=== PATIENT | female | born 1990 | race Caucasian/White ===

== ENCOUNTER → 2022-03-04 | Outpatient (CLI) | payer BC ==
[~2022-03-04] MED LIST: IBU800 M1 PO; PERCOCET 325 MG1 TA2 PO; PRENATAL MVI
== END ==
LOC: COL.RAD 10:42
DX: D17.9 Benign lipomatous neoplasm, unspecified (principal); R22.2 Localized swelling, mass and lump, trunk

== ENCOUNTER 2022-03-28 10:22 | Day surgery (SDC) | payer BC ==
[~2022-03-28] VITALS: Ht 188 cm; Wt 143.8 kg
[2022-03-28 11:11] VITALS: BP 152/96; PULSE 84; TEMP 98.3
[2022-03-28] MEDS ORDERED: LEXAPRO20 MG PO (11:23)
[2022-03-28] MEDS ORDERED: TUMS ULTRA ST1000 MG PO (12:52)
[2022-03-28] MEDS ORDERED: FLEXERIL 1010 MG/TAB PO (12:52)
--- NOTE | 2022-03-28 15:53 | NUR ---
Discharge instructions were reviewed with the patient and her by TORSTEN Simpson. They both verbalized understanding and questions were answered at this time. The patient's IV to her left hand was removed and a pressure dressing was applied to the site. The patient is going to get dressed so she can be escorted out.
[2022-03-28 17:15] VITALS: BP 148/91; PULSE 91; TEMP 97.1
--- NOTE | 2022-03-28 17:15 | NUR ---
The patient arrived back to [facility] from the recovery room at this time. The patient reports pain at a "3" mostly located in her left rib area. The patient agrees to try some apple juice at this time. The patient has 22 bandaids that appear clean dry and intact. Post operative vital signs were started at this time. is at her bedside. Denies any needs at this time.
[2022-03-28 17:30] VITALS: BP 127/82; PULSE 88
--- NOTE | 2022-03-28 17:30 | NUR ---
The patient appears to be tolerating the apple juice well. Vital signs appear stable. Call light remains within reach. at bedside. Denies wanting anything further to eat or drink at this time.
[2022-03-28] MEDS ORDERED: NORCO 325 MG-51 TAB PO (17:38)
[2022-03-28] MEDS ORDERED: MOTRIN 600600 MG/TAB PO (17:38)
[2022-03-28 17:50] VITALS: BP 129/82; PULSE 84
--- NOTE | 2022-03-28 17:50 | NUR ---
The patient was given a PRN dose of [place] one tab for reports of increased pain at her incision sites. The patient's IV was INT'd and she is going to ambulate to the bathroom at this time.
--- NOTE | 2022-03-28 18:03 | NUR ---
The patient was escorted out via wheelchair to a private vehicle by TORSTEN Simpson. The patient's belongings and discharge paperwork were sent with her. The patient's is present to drive her home.
== END 2022-03-28 18:03 | disposition home or self-care (01) ==
LOC: SDCO 10:22
DX: D17.1 Benign lipomatous neoplasm of skin and subcutaneous tissue of trunk (principal); D17.21 Benign lipomatous neoplasm of skin and subcutaneous tissue of right arm
CPT/HCPCS: J1100; J1170; J2250; J2405; J2704; J3010; J7120

== ENCOUNTER 2023-02-06 10:31 | Day surgery (SDC) | payer BC ==
[2023-02-06] VITALS (7 sets, daily range): BP systolic 112–154; BP diastolic 64–91; PULSE 84–100; TEMP 97.6–98.4
[~2023-02-06] VITALS: Ht 188 cm; Wt 147.2 kg
[~2023-02-06 10:31] MED LIST changes: +FLEXERIL 1010 MG/TAB PO; +LEXAPRO20 MG PO; +MOTRIN 600600 MG/TAB PO; +NORCO 325 MG-51 TAB PO; +TUMS ULTRA ST1000 MG PO
[2023-02-06] MEDS ORDERED: NORVASC 5MG5 MG/TAB PO (11:38)
[2023-02-06] MEDS ORDERED: EFFEXOR-XR150 MG PO (11:38)
[2023-02-06] MEDS ORDERED: ADDERALL5 MG PO (11:39)
[2023-02-06] MEDS ORDERED: FOLIC ACID 11 MG/TA1 PO (11:40)
[2023-02-06] MEDS ORDERED: MOTRIN 600600 MG/TAB PO (14:34)
[2023-02-06] MEDS ORDERED: NORCO 325 MG-51 TAB PO (14:34)
--- NOTE | 2023-02-06 21:12 | NUR ---
[id number]: PT TO [facility] FROM PACU S/P MULTIPLE SMALL LIPOMA EXCISIONS ON BACK (X20, COVERED WITH BANDAIDS)- CDI. HAS BEEN TOLERATING ICE CHIPS. A&O, NAD. REPORTS MILD BURNING TO BACK, BUT DENIES SIGNIFICANT DISCOMFORT PLACED ON MONITOR, VSS ON RA RECEIVED REPORT AND ASSUMED CARE OF PT FROM TORSTEN GAN /FAMILY AT BEDSIDE PROVIDED FOOD AND FLUIDS - INITIALLY TOLERATING WELL, BUT THEN DEVELOPED MODERATE NAUSEA - TREATED WITH ZOFRAN WITH COMPLETE RELIEF, ABLE TO TOLERATE PO AFTER. PT HAS REMAINED A&O, NAD, VSS ON RA, TOLERATING PO, IS WITHOUT SIGNIFICANT COMPLAINT, WITH STEADY GAIT FOR REMAINDER OF [facility] IV D/C'D. D/C INSTRUCTIONS, ANY FOLLOW UP REVIEWED AND HANDED TO PT. ALL QUESTIONS AND CONCERNS ADDRESSED TO PT SATISFACTION. TAKEN TO EXIT VIA W/C WITH ALL BELONGINGS AND PAPERWORK IN HAND, ASSISTED INTO PASSENGER SEAT OF [facility]. TO DRIVE HOME.
== END 2023-02-06 18:40 | disposition home or self-care (01) ==
LOC: SDCO 10:31
PROVIDERS: Surgery
DX: D17.1 Benign lipomatous neoplasm of skin and subcutaneous tissue of trunk (principal); E66.9 Obesity, unspecified
CPT/HCPCS: J0330; J1100; J2405; J2704; J3010

== ENCOUNTER → 2024-01-07 | Outpatient (CLI) | payer BC ==
[~2024-01-07] MED LIST changes: +ADDERALL10 MG PO; +EFFEXOR-XR150 MG PO; +FOLIC ACID 11 MG/TA1; +MAG-OX 400400 MG/TAB PO; +NATURAL IRON65 MG PO; +NORVASC 5MG5 MG/TAB PO; +PRENATAL LOWIRON PO; +PROTONIX 40MG T40 MG PO; +ROXICODONE 55 MG/TAB PO; +TYLENOL 325MG325 MG PO; +ZOFRAN 4MG T4 MG/TAB PO
== END ==
LOC: MC.RAD 06:58
DX: N63.10 Unspecified lump in the right breast, unspecified quadrant (principal); N63.20 Unspecified lump in the left breast, unspecified quadrant; Z86.018 Personal history of other benign neoplasm

== ENCOUNTER 2024-02-19 10:10 | Day surgery (SDC) | payer BC ==
[~2024-02-19] VITALS: Ht 188 cm; Wt 137.9 kg
[~2024-02-19 10:10] MED LIST changes: +HYDROmorphone 1 MG/1 ML SYRINGE [PACU/SDC ONLY] IV PRN; +LR 1,000 ML IV SCH; +Meclizine 25 MG TAB PO SCH; +Morphine 2 MG/1 ML VIAL [PACU/SDC ONLY] IV PRN; +Ondansetron 4 MG/2 ML VIAL IV PRN; +droPERidol 2.5 MG/ML 2 ML VIAL IV PRN; +fentaNYL 50 MCG/ML 1 ML SYRINGE/VIAL [PACU/SDC ONLY] IV PRN; +hydrALAZINE 20 MG/ML 1 ML VIAL IV PRN
[2024-02-19] MEDS ORDERED: diazePAM 10 MG TAB PO ONE (10:45)
[2024-02-19] MEDS ORDERED: ADDERALL15 MG PO (11:05)
[2024-02-19] MEDS ORDERED: ATARAX 10MG10 MG/TAB PO (11:09)
[2024-02-19] MEDS ORDERED: fentaNYL 50 MCG/ML 2 ML VIAL ONE (11:28)
[2024-02-19] MEDS ORDERED: Lidocaine PF 2% (20 MG/ML) 5 ML VIAL ONE (11:29)
[2024-02-19] MEDS ORDERED: NS 20 ML IV ONE (11:30)
[2024-02-19] MEDS ORDERED: Ondansetron 4 MG/2 ML VIAL ONE (11:30)
[2024-02-19] MEDS ORDERED: dexAMETHasone 10 MG/ML VIAL ONE (11:30)
[2024-02-19 12:10] VITALS: BP 144/86; PULSE 100; TEMP 97
[2024-02-19] MEDS ORDERED: Rocuronium 50 MG/5 ML Multi-Dose VIAL ONE (13:09)
[2024-02-19] MEDS ORDERED: Ketorolac 30 MG/ML VIAL ONE (13:30)
[2024-02-19] MEDS ORDERED: ePHEDrine 50 MG/ML VIAL ONE (13:32)
[2024-02-19] MEDS ORDERED: Morphine 4 MG/ML VIAL IV PRN (15:45)
[2024-02-19] MEDS ORDERED: Ondansetron 4 MG/2 ML VIAL IV PRN (15:45)
[2024-02-19] MEDS ORDERED: Ibuprofen 600 MG TAB PO PRN (15:45)
[2024-02-19 15:50] VITALS: BP 131/69; PULSE 89; TEMP 97.5
--- NOTE | 2024-02-19 15:50 | NUR ---
PATIENT RETURNED TO ROOM 8 VIA CART, ALERT AND ORIENTED X3. DENIES PAIN, NAUSEA AND SHORTNESS OF BREATH. BREATHING REGULAR AND UNLABORED ON ROOM AIR. SKIN WARM AND DRY. 12 ANTERIOR BANDAIDS AND 2 RIGHT POSTERIOR BANDAIDS PRESENT. ALL BANDAIDS CLEAN, DRY AND INTACT. SURROUNDING SKIN INTACT. NO VISIBLE REDNESS SURROUNDING BANDAIDS. NURSE HANDOFF COMPLETED IN ROOM. CALL LIGHT IN REACH. PATIENT HAD A MUFFIN AND JUICE. BOTH FOOD AND DRINK TOLERATED WELL. NO DYSPHAGIA. SPOUSE, ROD, AND GIRLFRIEND, LETICIA, PRESENT IN ROOM.
[2024-02-19 16:00] VITALS: BP 119/64; PULSE 105
[2024-02-19 16:15] VITALS: BP 122/66; PULSE 86
[2024-02-19 16:20] VITALS: BP 124/68; PULSE 94
--- NOTE | 2024-02-19 16:47 | NUR ---
PER PACU NURSE REPORT, PATIENT ARRIVED TO PACU WITH NO IV IN PLACE. UPON ARRIVAL TO BAY 8, PATIENT DID NOT HAVE AN IV. PATIENT DENIES PAIN AND NAUSEA. TOLERATING FOOD AND DRINK. 1630: PATIENT AMBULATED TO RESTROOM WITH STEADY GAIT. 1637: DISCHARGE TEACHING COMPLETED WITH PRINTED EDUCATION AND INSTRUCTIONS SENT HOME WITH PATIENT. PATIENT INFORMED OF FOLLOW UP APPOINTMENT DATE, TIME AND LOCATION. PATIENT VERBALIZED UNDERSTANDING. ALL ANTERIOR AND POSTERIOR BANDAIDS CLEAN, DRY AND INTACT. ABDOMEN SOFT. 1647: PATIENT DISCHARGED HOME WITH SPOUSE, ROD, TRANSPORT.
== END 2024-02-19 16:47 | disposition home or self-care (01) ==
LOC: SDCO 10:10
PROVIDERS: Surgery
DX: D17.39 Benign lipomatous neoplasm of skin and subcutaneous tissue of other sites (principal); D17.1 Benign lipomatous neoplasm of skin and subcutaneous tissue of trunk; D17.79 Benign lipomatous neoplasm of other sites; N63.10 Unspecified lump in the right breast, unspecified quadrant; N63.20 Unspecified lump in the left breast, unspecified quadrant; Z86.018 Personal history of other benign neoplasm
CPT/HCPCS: J0690; J1100; J1885; J2405; J2704; J3010; J7120